=== PATIENT | male | born 1950 | race Caucasian/White ===

== ENCOUNTER → 2023-07-04 15:46 | Outpatient (REF) | payer MEDICARE, OTHER, SELFPAY | LOC: HWRAD 15:46 | PROVIDERS: ATTENDING PHYSICIAN Internal Medicine Critical Care Medicine; FAMILY PHYSICIAN Family Medicine | DX: R93.89 Abnormal findings on diagnostic imaging of other specified body structures (principal); J84.9 Interstitial pulmonary disease, unspecified | CPT/HCPCS: 71250 ==

== ENCOUNTER → 2024-01-21 12:19 | Outpatient (REF) | payer MEDICARE, OTHER, SELFPAY | LOC: HWRAD 12:19 | PROVIDERS: ATTENDING PHYSICIAN Internal Medicine Critical Care Medicine; FAMILY PHYSICIAN Family Medicine | DX: R93.89 Abnormal findings on diagnostic imaging of other specified body structures (principal) | CPT/HCPCS: 71250 ==

== ENCOUNTER 2024-02-11 06:55 | Day surgery (SDC) | payer MEDICARE, OTHER, SELFPAY ==
[2024-02-09 11:03] VITALS: BMI 25.3
[2024-02-11] VITALS (9 sets, daily range): BP systolic 127–148; BP diastolic 73–98; BMI 25.5
[2024-02-11] MEDS: DUONEB 3 ML INH (09:02)
== END 2024-02-11 12:50 | disposition home or self-care (01) ==
LOC: SDS 06:55
PROVIDERS: ATTENDING PHYSICIAN Internal Medicine Critical Care Medicine
DX: R91.1 Solitary pulmonary nodule (principal); R93.89 Abnormal findings on diagnostic imaging of other specified body structures; J84.9 Interstitial pulmonary disease, unspecified; J44.9 Chronic obstructive pulmonary disease, unspecified; Z87.891 Personal history of nicotine dependence; Z80.1 Family history of malignant neoplasm of trachea, bronchus and lung
CPT/HCPCS: 31629; 31628; 31652; 31627; 31623; 31654; 31624; 88172; 88173; 88305; 71045; 76000; 87015; 87070; 87102; 87116; 87205; 88112; 88313; 88333; 88334; 88342; 94640; C1887

== ENCOUNTER 2024-04-22 06:14 | Inpatient (IN) | payer MEDICARE, OTHER, SELFPAY ==
[2024-04-16 12:24] VITALS: BMI 25.9
[2024-04-16 13:07] LABS: % Basophils 0.9 % (0-2); % Eosinophils 8.6 % (0-6); % Immature Granulocytes 0.4 % (0-0.5); % Lymphocytes 22.8 % (20.5-51.1); % Monocytes 9.7 % (1.7-9.3); % Neutrophils 57.6 % (42.2-75.2); Absolute Basophils 0.1 10^3/uL (0-0.2); Absolute Eosinophils 0.5 10^3/uL (0-0.7); Absolute Lymphocytes 1.2 10^3/uL (1.2-3.4); Absolute Monocytes 0.5 10^3/uL (0.1-0.6); Absolute Neutrophils 3.1 10^3/uL (1.4-6.5); Hematocrit 36.8 % (39.0-52.0); Hemoglobin 12.5 g/dL (13.0-18.0); Mean Corpuscular Hgb 28.7 pg (27.0-31.0); Mean Corpuscular Volume 84.4 fL (80.0-94.0); Mean Platelet Volume 10.1 fL (7.4-10.4); Nucleated Red Blood Cells % 0 % (-); Platelet Count 212 10^3/uL (130-400); Red Blood Cell Count 4.36 10^6/uL (4.70-6.10); Red Cell Dist. Width 12.3 % (11.5-14.5); White Blood Cell Count 5.3 10^3/uL (4.8-10.8)
[2024-04-16 13:19] LABS: ALT (SGPT) 18 U/L (0-50); AST (SGOT) 27 U/L (17-59); Albumin 4.7 g/dl (3.5-5.0); Alkaline Phosphatase 62 U/L (38-126); Blood Urea Nitrogen 20 mg/dl (9-20); Calcium 9.3 mg/dl (8.4-10.2); Carbon Dioxide 26 mmol/L (22-30); Chloride 101 mmol/L (98-107); Estimated Creatinine Clearance 38 ml/min; Glucose 90 mg/dl (70-99); Potassium 4.3 mmol/L (3.5-5.1); Sodium 137 mmol/L (135-145); Total Bilirubin 0.9 mg/dl (0.2-1.3); Total Protein 7.1 g/dl (6.3-8.2); eGFR 45.21
[2024-04-16 13:20] LABS: INR 1.03; PT 13.8 Sec (11.4-14.6)
[2024-04-16 13:21] LABS: APTT 28.7 Sec (23.4-35.0)
[2024-04-16 13:31] LABS: Urine Albumin Negative (Neg - Trace); Urine Bilirubin Negative (Negative); Urine Character Clear (Clear); Urine Color Yellow; Urine Glucose Negative (Negative); Urine Ketone Negative (Negative); Urine Leukocyte Negative (Negative); Urine Nitrite Negative (Negative); Urine Occult Blood Negative (Negative); Urine Urobilinogen Negative (Neg - 1+)
--- NOTE | 2024-04-16 13:52 | CM ---
Met with Mr. Nielsen in [facility]. He states prior to admission he resides with his spouse in a two story home with two steps to enter. He states he has a full flight of steps to get to bedroom/full bathroom. He states he has a powder room on the first
floor. He states prior to admission he was independent with ambulation and adls. He states he has a CPAP Machine at home and no other DME in the home. He states he has a prescription plan and uses [facility]. He states his spouse will be
home to assist in his care when he goes home. The discharge plan is to return home with his spouse a home visit by the Transitional Care Nurse when medically stable.
We reviewed pre-op and post-op routines. We reviewed the shower instructions. He has the soap, and written instructions. He already has the Lung Educational Booklet. We also reviewed restrictions including driving and lifting. We discussed a
home visit by the Transitional Care Nurse. He is agreeable to home visit. The plan is to for Right Upper Lobe Lobectomy on 04/22/24.
[2024-04-16 14:36] LABS: Glycohemoglobin (HgbA1c) 5.4 % (4.0-5.6)
[2024-04-22] VITALS (22 sets, daily range): BP systolic 115–160; BP diastolic 76–102; BMI 25.9; BMI 26.4
--- NOTE | 2024-04-22 06:28 | W.CVOR.SURPR ---
CVOR Surgeon Immed Pre Op
-
I have examined this patient prior to performance of the scheduled procedure.
The patient's condition is unchanged from the time of the dictated/written History and
Physical and the patient is able to undergo the scheduled procedure.
RATS RUL Segment vs Lobectomy + LN Dissection
--- NOTE | 2024-04-22 07:00 | PTCARENOTE ---
Assumed care of the patient at 0700. Patient awaiting transport to the OR. at bedside. Oriented, pleasant, questions encouraged. Call hughes within reach, assessment of needs ongoing.
--- NOTE | 2024-04-22 08:19 | CM ---
Reviewed chart. Mr. Nielsen is in the operating room today. Prior to admission he resides with his spouse in a two story home with two steps to enter. He has a full flight of steps to get to bedroom/full bathroom. He has a powder room on the first
floor. Prior to admission he was independent with ambulation and adls. He has a CPAP Machine at home and no other DME. He has a prescription plan and uses [facility]. His spouse will be home to assist in his care if needed. Medial work-up
in progress. The discharge plan is to return home with his spouse and a home visit by the [facility] when medically stable.
[2024-04-22 10:09] LABS: Urine Albumin Negative (Neg - Trace); Urine Bilirubin Negative (Negative); Urine Character Clear (Clear); Urine Color Yellow; Urine Glucose Negative (Negative); Urine Ketone Negative (Negative); Urine Leukocyte Negative (Negative); Urine Nitrite Negative (Negative); Urine Occult Blood Negative (Negative); Urine Urobilinogen Negative (Neg - 1+)
--- NOTE | 2024-04-22 14:24 | CON.INTV ---
Consultation
Consultation Request
Date/Time Consultation Requested: 04/22/2024-2:30 PM
Date/Time Consultation Performed: 04/22/2024-3 PM
Requesting Provider: Cardiovascular surgery
Performing Provider: Dr. Zhao
Reason for Consultation: Postoperative critical care management
Medical History
-
Chief Complaint: Lung cancer
History of Present Illness:
73-year-old former smoking male with history of atrial fibrillation, hypertension, chronic kidney disease, and hyperlipidemia with known slowly increasing right upper lobe nodule underwent bronchoscopy and pathology revealing atypical cells and
abnormal PET scan and underwent robotic assisted thorascopic right upper lobectomy and lymph node dissection-tread cutter was consulted for postoperative critical care management 04/22/2024. Patient is seen postoperatively in the cardiovascular
intensive care unit. He is still somewhat lethargic, complaining of significant pain. No respiratory distress or no complaints of abdominal pain.
Past Medical History
Past Medical History: None (Hypertension. Hyperlipidemia. Former smoker. BPH. Chronic kidney disease stage III. Atrial fibrillation 2003. IBS. Sinus surgery. TURP 2012. Cholecystectomy. Eye surgery 2016. Right rotator cuff 2021.
Hemorrhoidectomy 2022.)
Social History
Tobacco: Former Smoker (Quit 1984)
Alcohol: Occasional (3-4 beers per week)
Drug: None
Personal:
Living: With Family
Occupational Exposures: No known asbestos exposure
Environmental Exposures: No known tuberculosis exposure
Family History
Family History: Other (Father-CAD, dementia and Parkinson's. Cousin-ovarian cancer. Mother-CAD. Paternal aunt stomach cancer. Brother-diabetes.)
Allergies / Home Medications
Allergies
Allergy/AdvReac Type Severity Reaction Status Date / Time
Cephalosporins Allergy patient Verified 04/15/24 11:19
unaware
penicillin V Allergy brother Verified 04/15/24 11:19
and mother
anaphylaxis
Penicillins Allergy brother Verified 04/15/24 11:19
and mother
anaphylaxis
pollen extracts Allergy nasal Verified 04/15/24 11:19
congestion
Home Medications
�Medication �Instructions �Recorded �Confirmed �Last Taken �Type
amlodipine 2.5 mg tablet 2.5 mg PO QPM 06/14/22 04/22/24 04/19/24 21:00 History
atorvastatin 10 mg tablet 10 mg PO QPM 06/14/22 04/22/24 04/21/24 21:00 History
calcium carbonate (Tums) 200 mg PO TIDPRN PRN gerd 06/14/22 04/22/24 04/21/24 17:00 History
colestipol 1 gram tablet 1 g PO QPM 06/14/22 04/22/24 04/21/24 21:00 History
colestipol 1 gram tablet 2 g PO DAILY@1200 06/14/22 04/22/24 04/21/24 12:00 History
ipratropium bromide 42 mcg (0.06 2 spray intranasal BID 02/28/23 04/22/24 04/21/24 21:00 History
%) nasal spray
cetirizine 10 mg tablet (Zyrtec) 10 mg PO DAILY 02/09/24 04/22/24 04/21/24 09:00 History
fluticasone propionate 50 2 spray intranasal QPM PRN allergy 02/09/24 04/22/24 04/21/24 21:00 History
mcg/actuation nasal Symptoms
spray,suspension (Flonase Allergy
Relief)
loperamide 2 mg tablet 2 mg PO PRN PRN Diarrhea 02/09/24 04/22/24 04/16/24 History
omeprazole 40 mg capsule,delayed 40 mg PO DAILY 02/09/24 04/22/24 04/21/24 09:00 History
release
sodium bicarbonate 0.5 tsp PO PRN PRN indigestion 02/09/24 04/22/24 04/16/24 History
psyllium 1 packet PO DAILY 02/11/24 04/22/24 04/21/24 09:00 History
tadalafil 10 mg tablet 10 mg PO HS ED 04/15/24 04/22/24 Unknown History
Review of Systems
-
Unable to Obtain full review of systems at this time due to: Other (Per HPI)
Vitals / Labs / Diagnostic Testing
Vital Signs
Temp Pulse Resp BP Pulse Ox
98.4 F 74 18 154/90 100
04/22/24 06:18 04/22/24 06:18 04/22/24 06:18 04/22/24 06:11 04/22/24 06:18
Lab Data
04/16/24 12:34
04/16/24 12:34
Diagnostic Testing:
Physical Exam
-
Exam:
Well-nourished and well-developed in no apparent distress
HEENT-atraumatic, normocephalic
Neck-supple, no JVD, no bruit
Heart-regular rate and rhythm-no murmurs, rubs or gallops
Chest with diminished breath sounds, chest tubes on the right
Back-no tenderness
Abdomen-soft, nontender, nondistended, no hepatosplenomegaly
Extremities-no cyanosis, clubbing, edema and good peripheral pulses
Integument-intact, no rashes, lesions or ecchymosis
Neurology-alert and oriented, nonfocal motor and sensory exam
Assessment
-
73-year-old former smoking male with history of atrial fibrillation, hypertension, chronic kidney disease, and hyperlipidemia with known slowly increasing right upper lobe nodule underwent bronchoscopy and pathology revealing atypical cells with
positive PET scan and underwent robotic assisted thorascopic right upper lobectomy and lymph node dissection-tread cutter was consulted for postoperative critical care management 04/22/2024.
Right upper lobe nodule-slowly increasing in size
Status post robotic bronchoscopy 02/2024-atypical cells with positive PET scan
Status post robotic assisted thorascopic right upper lobectomy and lymph node dissection Dr. Charles 04/22/2024
Mild qihfrx-mljwbnunwo-drzbeckbse 12.5
Mild hyperglycemia
Conditions present prior to admission:
Hypertension.
Hyperlipidemia.
Former smoker.
Cough variant asthma
Seasonal allergies
PERI
Decreased diffusing capacity
ILD
BPH.
Chronic kidney disease stage III.
Atrial fibrillation 2003.
IBS.
Sinus surgery. TURP 2012. Cholecystectomy. Eye surgery 2016. Right rotator cuff 2021. Hemorrhoidectomy 2022.
Plan
Patient seen postoperatively in the cardiovascular intensive care unit
Tolerated extubation
Wean supplemental oxygen
Incentive spirometry
Nebulizers if needed-currently not bronchospastic
Operative records reviewed
Monitor chest tube output
Follow chest x-ray
Await final pathology
Follow hemoglobin
Transfuse if needed
Monitor blood sugar
Insulin supplementation as needed
DVT prophylaxis
Nutrition
Early mobilization
Last saw Dr. Ren 03/24/2024 and has follow-up appointment 11:45 AM 05/17/2024
Critical care statement: A total of 55 minutes of critical care time was provided for this patient today. This includes management of unstable vital signs, evaluation of the patient at bedside, reviewing the patient's pertinent medical records
including radiographs, microbiology, laboratory evaluations, and discussion with primary team, consultants, pharmacy, nutrition, physical therapy, case management, charge nurse, critical care nursing, and respiratory therapy.
Diagnostic data:
Chest x-ray 02/11/2024-no pneumothorax, hazy opacifications over right mid to upper lung zone likely sequelae of recent bronchoscopy
CT chest from 01/21/2024 revealed an unchanged 3 mm nodule along the right minor fissure, possibly intrapulmonary lymph node. Unchanged 5.8 mm nodule within the posterior right upper lobe. Unchanged 4 to 5 mm subpleural nodule within the left upper
lobe. Scattered calcified granulomas bilaterally.
PET/CT 03/08/2024: 17 mm FDG avid lymph node superior aspect of the right hilum which measures 3.3 SUV max and is 4.1 currently. Slight increased FDG avidity compared to prior.13 mm right upper lobe nodule increased in size compared to prior (grew
about 3 mm), SUV 1.6 max.BAL positive for CAROLYNN: There was no granuloma biopsied. No other abnormalities to suggest active infection.
PFT 02/04/2024: FVC 3.96/108%, FEV1 2.58/98%, ratio 65%, 12% BD response in FEV1, post BD results FVC 4.05/111%, FEV1 2.88/109%, ratio 71%, TLC 6.22/99%, DLCO 17.58/76%, DLCO/VA 3.2/88%.
Bronchoscopy 02/11/2024-right upper lobe brush negative for malignant cells, trans bronchial needle aspiration atypical cytology
Bronchoscopy 02/11/2024-the right upper lobe lung nodule biopsy-rare atypical cells
Sleep study 12/13/2015: EMILIA 10 there was mild oxygen desaturation nocturnally.
Stress echo 02/04/2019: Below average exercise intolerance. No evidence for ischemia. Low risk study
Data Reviewed
-
PFT: Report reviewed by me
EKG: Report reviewed by me
Radiology: Report reviewed by me
CT Scan: Report reviewed by me
Medical Tests (Nuc Med, Echo etc): Report reviewed by me
Labs: Labs reviewed by me
Old Records: Reviewed
Critical Care Time (in minutes): 55
--- NOTE | 2024-04-22 14:56 | W.PN.CT.SURG ---
Addendum entered and electronically signed by Ronny Charles MD 04/22/24 15:42:
Procedure(s) Performed:
1. Robotic assisted thoracic surgery (RATS) right upper lobectomy
2. Radical lymph node dissection
3. Intercostal nerve block performed by anesthesia
4. Pexy of RML to RLL to prevent torsion
Original Note:
CT Surgery Operative Note
-
THORACIC SURGERY OPERATIVE REPORT
Preoperative Diagnosis: Pulmonary nodule with atypical cells of the right upper lobe with concerning features
Postoperative Diagnosis: Same
Procedure(s) Performed:
1. Robotic assisted thoracic surgery (RATS) right upper lobectomy
2. Radical lymph node dissection
3. Intercostal nerve block performed by anesthesia
Date of Surgery: 04/22/2024
Comorbidities:
1. Right upper lobe nodule with increased growth and concerning features on PET/CT
2. Melanoma stage II the right eyelid
3. Atrial fibrillation
4. Irritable bowel syndrome
5. Hypertension
6. History of BPH
7. CKD stage III
8. Right bundle branch block
9. Nonobstructive coronary artery disease
10. History of tobacco abuse
Attending Surgeon: Ronny Charles MD, MS
Assistants: Donna Hutchison PA-C (present and necessary to physician assistant primary care, exchanging robotic instruments, retraction, suction, exposure, suture management, and wound closure under my direction)
Anesthesiology: Richard Liu MD and Yoshi Merrill CRNA
Scrub and Circulating RNs: Vania Bob, RN and Nasrin Conley, RN, Felisha Crawford, NEHEMIAS and Nikki Haywood RN
Anesthesia: Dual Lumen GETA
EBL: 150 cc
Products: None
Indication(s) for Procedures: This is a 73-year-old male with history of tobacco abuse. He has a known right upper lobe nodule that has increased in size as well as FDG avidity on PET CT scan concerning for malignancy. He underwent a robotic
endoluminal bronchoscopy which demonstrated atypical cells but no javier malignancy. Given the concerning features on his imaging studies as well as his atypical cells on pathology, he was sent to me for possible surgical resection with lymph node
dissection.
Findings: There were no obvious intrathoracic metachronous lesions. His hilum was densely scarred with evidence of central lobar emphysema. 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
bronchus. He had poorly developed fissures which required extensive dissection in order to separate the lobes. At the conclusion of the case he had a minor degree of air loss with a tidal volume although this improved significantly with his [place]
respiration and cessation of positive pressure ventilation.
Specimen(s):
Station 9, x 3 nodes
Station 10, x 4 nodes
Station 11, x 3 nodes
Station 4/2, x 1 nodes
Station 7, x 1 nodes
Right upper lobe lobe
Description of Procedure: The patient was taken to the operating room. Induction via general anesthesia with endotracheal intubation was performed and peripheral venous access and arterial monitoring were inserted. Their identity and procedure to be
performed were verified and they were positioned with the right side up on the operating table. The patient was then prepped and draped in a sterile fashion. A preoperative time-out was performed with all members of the team present. A Veress
needle was used to insufflate the chest after isolating the lung. An 8 mm port was placed in the midaxillary line at approximately the eighth intercostal space and confirmed to be intrathoracic without significant pulmonary injury. The chest was
surveyed for any evidence of metastatic disease. Patient tolerate insufflation without complication. 2 additional 12 mm trocars were placed on either side under camera guidance and a third 8 mm trocar was placed along the back. A 12 mm [employer] assistant
port was placed in the 11th intercostal space above the insertion of the diaphragm.
The thoracic cavity was inspected for evidence of metastatic disease. None was observed. I attempted to palpate the parenchyma of the right upper lobe in order to identify the nodule which was unsuccessful. We started with mobilization of the
inferior pulmonary ligament. We worked our way clockwise dissecting out the hilum and harvest any lymph nodes identified. Of note, his hilum was significantly scarred. He also had poorly developed fissures between the right upper middle and right
upper and lower lobes. After circumferentially freeing up his hilum, I then headed towards the fissure which required extensive separation of the lung parenchyma between the lobes. Once I was able to identify the main pulmonary artery with its
branches, I was able to sequentially divide the lung parenchyma with green loads until the hilum was free and the fissures were fully developed. At this point in order to gain access to the arterial branches, the pulmonary veins were taken
sequentially flush to the left atrium. These were done with white load staplers. At this point he had a bifurcating truncus branch heading up towards the apex and then a larger branch towards the mid body of the right upper lobe. These were taken
with white load staplers. In order to obtain enough length on the bronchus heading towards the right upper lobe, additional dissection was performed. I clamped the bronchus and performed a test inflation which demonstrated unobstructed flow into
the remaining middle and lower lobe. The specimen was displaced toward the apex while a chest tube was inserted and placed laterally towards the apex. CoSeal was used to reinforce the staple lines and hilum. The right upper lobe was then placed
into a specimen bag and extracted from the chest cavity. After confirming hemostasis, the lung was fully inflated and all ports were removed. Incisions were closed in 3 layers including the fascia, dermal, and epidermis. Additional local
anesthesia was injected into all incision sites. The skin wound was cleansed and sealed with Dermabond glue.
All instrument, sponge, and needle counts were confirmed to be correct x 2 at the end of the operation. The patient was transferred to the recovery unit extubated in critical but stable condition.
I, Dr. Ronny Charles, was present, scrubbed for, and performed all critical elements of this procedure.
Ronny Charles MD, MS
Cardiothoracic Surgeon
[facility]
This operative dictation was created using the [employer] dictation system. Please excuse any grammatical, typographical, or 'sound alike' errors
[2024-04-22] MEDS: DILAUDID 0.5 MG IV ×4 (14:57→18:46)
[2024-04-22] MEDS: DEMEROL 12.5 MG IV ×2 (15:30→15:53)
--- NOTE | 2024-04-22 16:45 | PTCARENOTE ---
Patient received from PACU at 1640. AOx3, drowsy, awoke to verbal stimulation, grimacing in pain, 9/10. SR w/ RBBB on the monitor, no edema, + pulses, heart tones audible. On RA, placed on 2LNC for desatting to 88% d/t drowsiness. L lung clear, R
lung coarse on auscultation, R pleural dorsal CT to -20 cm wall suction, +1-2 air leak and tidaling noted, no crepitus. CT dressing CDI, scant drainage on gauze. Abdomen SNT, c/o dry mouth, tolerated PO medications. Ayers catheter in place draining
clear yellow urine. All surgical sites intact, approximated. PIV x2 in R hand and LAC. L radial a-line in place, line leveled and zeroed. See nursing worklist for interventions details.
[2024-04-22] MEDS: LIPITOR 10 MG PO (17:26)
[2024-04-22] MEDS: NEURONTIN 100 MG PO ×2 (17:26→21:56)
[2024-04-22] MEDS: NORVASC 2.5 MG PO (18:02)
[2024-04-22] MEDS: ROXICODONE 5 MG PO (18:47)
[2024-04-22] MEDS: LOPRESSOR 12.5 MG PO (20:10)
[2024-04-22] MEDS: SENOKOT 8.6 MG PO (20:10)
--- NOTE | 2024-04-22 20:36 | PTCARENOTE ---
Received pt from [facility]. Walking rounds completed. Pt assessment completed in bed. Pt is drowsy, oriented X4. No neuro deficits noted. NSR with BBB noted on monitor. HR 83, B/P 141/94. L A-line zeroed and calibrated. Pulses palpable, - edema. R
lung coarse, L lungs clear. POX 96% on 2L NC. CTx1 airleak, tidaling 1-2. Ayers intact, draining clear, yellow urine. WNL. Hypoactive BS, abdomen, soft, non-tender. R chest incisions (3) EDILSON, approximated, surgical glue present. All surgical
incisions stable. R C/T dressing with minimal drainage. R hand PVA intact, flushes. Discussed plan of care with pt and family. Pt agrees to plan. Will continue to monitor Pt needs.
[2024-04-22] MEDS: ANCEF 5 IV (21:01)
[2024-04-22] MEDS: TYLENOL 1000 MG PO (21:56)
[2024-04-22] MEDS: FLEXERIL 5 MG PO (22:05)
--- NOTE | 2024-04-22 23:15 | PTCARENOTE ---
VSS. Pt in sinus rhythm on monitor HR 70, B/P 115/88. Pt c/o right chest pain 6-11/14. Discussed pain management course with pt and . Pt agrees with plan. Medication provided (SEE MAR). Will continue to monitor pt needs.
[2024-04-22] MEDS: ROXICODONE 2.5 MG PO (23:21)
[2024-04-23] VITALS (23 sets, daily range): BP systolic 100–136; BP diastolic 63–80; BMI 25.6
--- NOTE | 2024-04-23 03:11 | PTCARENOTE ---
VSS, NSR on monitor with BBB. HR 68, B/P 111/66. POX 95 2L NC. Resps 14. Positive relief of pain. Pt resting in bed. Will continue to monitor pt needs.
[2024-04-23 04:26] LABS: Hematocrit 32.7 % (39.0-52.0); Hemoglobin 11.3 g/dL (13.0-18.0); Mean Corp Hgb Conc. 34.6 g/dL (33.0-37.0); Mean Corpuscular Hgb 29.1 pg (27.0-31.0); Mean Corpuscular Volume 84.3 fL (80.0-94.0); Mean Platelet Volume 9.7 fL (7.4-10.4); Platelet Count 197 10^3/uL (130-400); Red Blood Cell Count 3.88 10^6/uL (4.70-6.10); Red Cell Dist. Width 12.6 % (11.5-14.5); White Blood Cell Count 8.1 10^3/uL (4.8-10.8)
[2024-04-23] MEDS: ANCEF 5 IV ×2 (04:40→12:54)
[2024-04-23] MEDS: ROXICODONE 2.5 MG PO ×3 (04:40→21:48)
[2024-04-23 04:41] LABS: Blood Urea Nitrogen 23 mg/dl (9-20); Calcium 8.4 mg/dl (8.4-10.2); Carbon Dioxide 24 mmol/L (22-30); Chloride 102 mmol/L (98-107); Estimated Creatinine Clearance 46 ml/min; Glucose 125 mg/dl (70-99); Magnesium 2.1 mg/dl (1.6-2.3); Potassium 4.7 mmol/L (3.5-5.1); Sodium 136 mmol/L (135-145); eGFR 58.01
--- NOTE | 2024-04-23 04:45 | PTCARENOTE ---
VSS. NSR with BBB on monitor. Pt schwartz d/c'ed. Pt A-line d/c'ed. Pt tolerated both removals. Pt resting in bed. Will continue to monitor pt needs.
[2024-04-23] MEDS: TYLENOL 1000 MG PO ×3 (05:37→21:47)
[2024-04-23] MEDS: FLEXERIL 5 MG PO ×2 (05:52→15:55)
--- NOTE | 2024-04-23 05:52 | W.PN.CT ---
Today's Communication / Plan
-
-pod #1
-no issues overnight
-R CT on -20 sxn, +1 intermittent air leak with breathing, put out 160/285 in 12/24 hrs
-follow daily CXR
-UO 750/1190 in 12/24 hrs
-current meds (Norvasc, Lopressor, Lipitor, Protonix)
-encourage IS, OOB
Assessment / Plan
-
- s/p Robotic assisted thoracic surgery (RATS) right upper lobectomy; Radical lymph node dissection; Pexy of RML to RLL to prevent torsion on 04/22/[address] Charles, pod #1
- no obvious intrathoracic metachronous lesions
- Right upper lobe nodule with increased growth and concerning features on PET/CT
- Melanoma stage II the right eyelid
- Paroxysmal Atrial fibrillation
- Irritable bowel syndrome
- Hypertension
- History of BPH
- CKD stage III
- Right bundle branch block
- Nonobstructive coronary artery disease
- History of tobacco abuse
- Acute postop blood loss anemia
- Acute postop atelectasis
Discussed patient care with: Nursing and Care Team
Subjective
-
Date of Service: April 23, 2024
Objective Data
-
PT 13.8 Sec (11.4-14.6) 04/16/24 12:34
INR 1.03 04/16/24 12:34
APTT 28.7 Sec (23.4-35.0) 04/16/24 12:34
Vital Signs
Vital Signs
Temp Pulse Resp BP Pulse Ox
99.6 F 69 20 123/75 95
04/23/24 01:58 04/23/24 01:45 04/23/24 01:58 04/23/24 01:00 04/23/24 01:58
CT Intake/Output/Weight
04/22/24 04/22/24 04/23/24
06:59 18:59 06:59
Intake Total 500 / 620 120 / 620
Output Total 565 / 1205 640 / 1205
Balance -65 / -585 -520 / -585
SaO2: 95
Physical Exam
-
General: Awake and AOx3
Cardiovascular: Regular rate & rhythm, No Murmurs and No Rub
Respiratory: Decreased Breath Sounds
Incision: Clean, Dry and Intact
Extremities: No Edema
Abdomen: soft, nontender,nondistended
Data Reviewed
-
Lab Results: Results Reviewed
Medications: Active Meds Reviewed
Chest X-Ray: Report Reviewed and Image Reviewed
ECG: Report Reviewed and Image Reviewed
--- NOTE | 2024-04-23 07:41 | W.PN.INTV ---
Today's Communication / Plan
Recommendations
Tolerated extubation
Wean FiO2
Chest tube on wall suction
Follow chest x-ray
Await pathology
If transferred to telemetry pulmonary will sign off-will follow-up as an outpatient-please call with questions
Assessment
-
73-year-old former smoking male with history of atrial fibrillation, hypertension, chronic kidney disease, and hyperlipidemia with known slowly increasing right upper lobe nodule underwent bronchoscopy and pathology revealing atypical cells with
positive PET scan and underwent robotic assisted thorascopic right upper lobectomy and lymph node dissection-rag collector was consulted for postoperative critical care management 04/22/2024.
Right upper lobe nodule-slowly increasing in size
Status post robotic bronchoscopy 02/2024-atypical cells with positive PET scan
Status post robotic assisted thorascopic right upper lobectomy and lymph node dissection Dr. Charles 04/22/2024
Mild oqmikl-nvlbnpnjgx-lhnvqmhrsp 12.5
Mild hyperglycemia
Conditions present prior to admission:
Hypertension.
Hyperlipidemia.
Former smoker.
Cough variant asthma
Seasonal allergies
PERI
Decreased diffusing capacity
ILD
BPH.
Chronic kidney disease stage III.
Atrial fibrillation 2003.
IBS.
Sinus surgery. TURP 2012. Cholecystectomy. Eye surgery 2016. Right rotator cuff 2021. Hemorrhoidectomy 2022.
Plan
Respiratory status relatively stable-tolerated extubation
Wean supplemental oxygen
Incentive spirometry encouraged
Nebulizers if needed-currently not bronchospastic
Operative records reviewed
Continue to monitor chest tube output as well as leak-currently on wall suction
Chest x-ray 04/23/2024-postsurgical changes, right chest tube remains in place, no pneumothorax
Await final pathology
Follow hemoglobin-currently 11.3
Transfuse if needed
Monitor blood sugar
Insulin supplementation as needed
DVT prophylaxis
Nutrition
Early mobilization
Reviewed with at the bedside
Last saw Dr. Ren 03/24/2024 and has follow-up appointment 11:45 AM 05/17/2024
Patient stable and likely transferred to telemetry-pulmonary will follow-up as an outpatient-please call with questions
Reviewed the patient's pertinent medical records including radiographs, microbiology, laboratory evaluations, and discussion with primary team, consultants, pharmacy, nutrition, physical therapy, case management, charge nurse, critical care
nursing, and respiratory therapy.
Diagnostic data:
Chest x-ray 02/11/2024-no pneumothorax, hazy opacifications over right mid to upper lung zone likely sequelae of recent bronchoscopy
CT chest from 01/21/2024 revealed an unchanged 3 mm nodule along the right minor fissure, possibly intrapulmonary lymph node. Unchanged 5.8 mm nodule within the posterior right upper lobe. Unchanged 4 to 5 mm subpleural nodule within the left upper
lobe. Scattered calcified granulomas bilaterally.
PET/CT 03/08/2024: 17 mm FDG avid lymph node superior aspect of the right hilum which measures 3.3 SUV max and is 4.1 currently. Slight increased FDG avidity compared to prior.13 mm right upper lobe nodule increased in size compared to prior (grew
about 3 mm), SUV 1.6 max.BAL positive for CAROLYNN: There was no granuloma biopsied. No other abnormalities to suggest active infection.
PFT 02/04/2024: FVC 3.96/108%, FEV1 2.58/98%, ratio 65%, 12% BD response in FEV1, post BD results FVC 4.05/111%, FEV1 2.88/109%, ratio 71%, TLC 6.22/99%, DLCO 17.58/76%, DLCO/VA 3.2/88%.
Bronchoscopy 02/11/2024-right upper lobe brush negative for malignant cells, trans bronchial needle aspiration atypical cytology
Bronchoscopy 02/11/2024-the right upper lobe lung nodule biopsy-rare atypical cells
Sleep study 12/13/2015: EMILIA 10 there was mild oxygen desaturation nocturnally.
Stress echo 02/04/2019: Below average exercise intolerance. No evidence for ischemia. Low risk study
Subjective Dataa
Subjective Data
Date of Service:
Date of Service: April 23, 2024
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
Subjective:
Tolerated extubation, pain marginally controlled, chest tube with persistent leak, no complaints of shortness of breath at rest or abdominal pain
Review of Systems
General: Other (Per HPI)
Objective Data
Data Reviewed
Vital Signs / I&O / Oxygen:
Vital Signs
Temp Pulse Resp BP Pulse Ox
98.7 F 68 16 108/76 98
04/23/24 06:00 04/23/24 07:15 04/23/24 06:00 04/23/24 06:00 04/23/24 07:15
Intake and Output
04/22/24 04/23/24 04/24/24
06:59 06:59 06:59
Intake Total 860 / 860
Output Total 1525 / 1525
Balance -665 / -665
SaO2 98
Nasal Cannula flow liters per 2
minute
Physical Exam
General: Respiratory Distress (n) and Comfortable
HEENT: Normocephalic, Anicteric and Moist Mucous Membranes
Cardiovascular: Regular Rhythm
Respiratory: Wheeze, Crackles (n), Rhonchi (n), Non-Labored Respirations, Accessory Resp Muscle Use, Stridor (n) and Chest Tube
GI: Soft, Non Distended and Non Tender
Neurology: Awake, Alert and No Motor Deficits
Skin: Warm, Good Color, Cyanosis (n) and Jaundice (n)
Labs/Micro/Reports
Lab Data
04/23/24 04:05
04/23/24 04:05
[2024-04-23] MEDS: DILAUDID 0.5 MG IV ×2 (08:23→12:54)
[2024-04-23] MEDS: LIDOCAINE 4% PATCH 1 PATCH TOPICAL (08:27)
[2024-04-23] MEDS: NEURONTIN 100 MG PO ×3 (08:30→21:48)
[2024-04-23] MEDS: LOPRESSOR 12.5 MG PO ×2 (08:30→19:44)
[2024-04-23] MEDS: PROTONIX 40 MG PO (08:30)
[2024-04-23] MEDS: METAMUCIL, KONSYL 1 PACKET PO (08:30)
[2024-04-23] MEDS: SENOKOT 8.6 MG PO ×2 (08:30→19:43)
[2024-04-23] MEDS: ZYRTEC 10 MG PO (08:30)
--- NOTE | 2024-04-23 08:30 | PTCARENOTE ---
Patient received from warehouse worker 2nd shift RN; AAOx3, responds to RN spontaneously and follows commands; VSS; SR with RBBB on monitor; +2 DP and radial pulses; Right lung coarse and diminished throughout; SpO2 94-98% on RA; CT x1 draining serosanguineous
drainage - tidaling and +1 air leak noted but no crepitus at this time; Due to void; Surgical incisions intact; PIVx2 #18 right hand and #20 LAC; Attempted water seal for chest tube at 0803 but patient unable to tolerate due to significant increase
in pain and placed back to wall suction at -20 cm at 0815 - PRN IV Dilaudid 0.5 mg given accordingly and CVNP Vania C. notified and aware; See nursing documentation for further details.
[2024-04-23] MEDS: MIRALAX 17 GRAMS PO (08:38)
[2024-04-23] MEDS: LASIX 20 MG IV (10:30)
--- NOTE | 2024-04-23 11:18 | CM ---
Reviewed chart. Met with Mr. Nielsen and his daughter to review discharge plans. He states he is feeling okay. Prior to admission he resides with his spouse in a two story home with two steps to enter. He has a full flight of steps to get to
bedroom/full bathroom. He has a powder room on the first floor. Prior to admission he was independent with ambulation and adls. He has a CPAP Machine at home and no other DME in the home. He has a prescription plan and uses [facility].
His spouse will be home to assist in his care if needed. Medical work-up in progress. The discharge plan is to return home with his spouse and a home visit by the Transitional Care Nurse when medically stable.
--- NOTE | 2024-04-23 13:00 | PTCARENOTE ---
IV Lasix 20 mg ordered and given; Patient urinated clear, yellow urine in bathroom; After returning from bathroom, patient in severe pain - PRN oxycodone 2,5 mg ineffective and PRN IV Dilaudid 0.5 mg given with good effect; Patient resting
comfortably in chair
[2024-04-23] MEDS: NORVASC 2.5 MG PO (17:10)
[2024-04-23] MEDS: LIPITOR 10 MG PO (17:10)
[2024-04-23] MEDS: ROXICODONE 5 MG PO (17:13)
--- NOTE | 2024-04-23 17:15 | PTCARENOTE ---
Patient's pain increasing throughout shift - CVNP Vania Tellez notified and PRN Oxycodone 5 mg ordered for patient; PRN Oxycodone working effectively for patient's pain
[2024-04-23] MEDS: MILK OF MAGNESIA 30 ML PO (19:44)
--- NOTE | 2024-04-23 20:00 | PTCARENOTE ---
Received pt from [facility]. Walking rounds completed. Pt assessment completed in bed. Pt AAOX4. No neuro deficits noted. NSR with RBBB noted on monitor. HR 73, B/P 116/80. Pulses palpable, - edema. R lung coarse, L lungs clear. POX 95% RA. CTx1
airleak, tidaling 1. Pt voiding clear, yellow urine. WNL. Hypoactive BS, abdomen, soft, non-tender. R chest incisions (3) EDILSON, approximated, surgical glue present. All surgical incisions stable. R C/T dressing C/D/I. R hand PVA intact, flushes.
Discussed plan of care with pt and family. Pt agrees to plan. Will continue to monitor Pt needs.
[2024-04-23] MEDS: DILAUDID 0.25 MG IV (23:10)
--- NOTE | 2024-04-23 23:30 | PTCARENOTE ---
VSS. Pt in NSR with RBBB on monitor. Pulse 82, B/P 124/76. Pt C/O pain in right upper chest and back area. Medication provided (See MAR). Positive relief of pain. Pt resting in bed. Will continue to monitor pt needs.
[2024-04-24] VITALS (18 sets, daily range): BP systolic 93–135; BP diastolic 60–88; BMI 25.6
--- NOTE | 2024-04-24 00:19 | PTCARENOTE ---
Pt in rapid AFIB on monitor @ 2315. HR 150's -170's. CTPA Ed aware. Chest xray ordered and obtained. 2.5 Lopressor given IV (SEE MAR). Pt will 13 second pause on telemonitor and a second 7 second pause on telemonitor. PA at bedside. Pt C/T placed
back on continuos wall suction. Will continue to monitor pt needs.
--- NOTE | 2024-04-24 05:06 | W.PN.CT ---
Today's Communication / Plan
-
Plan:
-No issues overnight
-Chest tube is on -20 cmh2o wall suction with continuous air leak noted, drained 170/335
-F/U AM cxr
-Will discuss suction another day
-current meds (Norvasc, Lopressor, Lipitor, Protonix)
-encourage IS, OOB/ Ambulate
Assessment / Plan
-
- s/p Robotic assisted thoracic surgery (RATS) right upper lobectomy; Radical lymph node dissection; Pexy of RML to RLL to prevent torsion on 04/22/[address] Charles, pod #2
- no obvious intrathoracic metachronous lesions
- Right upper lobe nodule with increased growth and concerning features on PET/CT
- Melanoma stage II the right eyelid
- Paroxysmal Atrial fibrillation
- Irritable bowel syndrome
- Hypertension
- History of BPH
- CKD stage III
- Right bundle branch block
- Nonobstructive coronary artery disease
- History of tobacco abuse
- Acute postop blood loss anemia
- Acute postop atelectasis
Discussed patient care with: Nursing, Respiratory Therapy, Pharmacy and Care Team
Subjective
-
Date of Service: April 24, 2024
Objective Data
-
Lab Results
04/23/24 04:05
04/23/24 04:05
PT 13.8 Sec (11.4-14.6) 04/16/24 12:34
INR 1.03 04/16/24 12:34
APTT 28.7 Sec (23.4-35.0) 04/16/24 12:34
Vital Signs
Vital Signs
Temp Pulse Resp BP Pulse Ox
99.1 F 73 20 103/62 94
04/24/24 00:09 04/24/24 04:00 04/24/24 00:09 04/24/24 04:00 04/24/24 03:45
CT Intake/Output/Weight
04/23/24 04/23/24 04/24/24
06:59 18:59 06:59
Intake Total 360 / 860 1080 / 1560 480 / 1560
Output Total 960 / 1525 940 / 1080 140 / 1080
Balance -600 / -665 140 / 480 340 / 480
SaO2: 94 (RA)
Physical Exam
-
General: Awake, Oriented and AOx3
Cardiovascular: Regular rate & rhythm
Respiratory: Decreased Breath Sounds (on right)
Incision: Clean, Dry, Intact and Dressing Intact
Extremities: No Edema
Data Reviewed
-
Lab Results: Results Reviewed
Medications: Active Meds Reviewed
Chest X-Ray: Report Reviewed and Image Reviewed
ECG: Report Reviewed and Image Reviewed
--- NOTE | 2024-04-24 05:34 | PTCARENOTE ---
VSS. Pt in NSR with RBBB on monitor. HR 74, B/P 103/62. Morning care provided. Wt obtained. Pt OOB to chair. Will continue to monitor pt needs.
[2024-04-24] MEDS: TYLENOL 1000 MG PO ×3 (06:07→22:34)
--- NOTE | 2024-04-24 08:00 | PTCARENOTE ---
Received patient for 7a-7p shift. Pt AAOx3, without complaints. VSS, room air, NSR with R bbb on threat monitoring analyst. R chest tube to -10cm wall suction, serosanguineous drainage, +tidaling, + air leak, MD aware. Dressing changed. Pt ambulated to
bathroom with 1 person assist. Medications administered as ordered. Patient denies pain at this time. Will continue to monitor.
[2024-04-24] MEDS: PROTONIX 40 MG PO (08:55)
[2024-04-24] MEDS: NEURONTIN 100 MG PO ×3 (08:55→22:34)
[2024-04-24] MEDS: SENOKOT 8.6 MG PO ×2 (08:56→21:22)
[2024-04-24] MEDS: ZYRTEC 10 MG PO (08:56)
[2024-04-24] MEDS: METAMUCIL, KONSYL 1 PACKET PO (08:56)
[2024-04-24] MEDS: LOPRESSOR 12.5 MG PO ×2 (08:57→17:05)
[2024-04-24] MEDS: MIRALAX PO (09:43)
[2024-04-24] MEDS: LIDOCAINE 4% PATCH TOPICAL (09:43)
[2024-04-24] MEDS: FLEXERIL 5 MG PO ×2 (10:34→23:22)
[2024-04-24] MEDS: ROXICODONE 2.5 MG PO ×3 (10:34→22:34)
[2024-04-24] MEDS: MIRALAX 17 GRAMS PO (13:46)
--- NOTE | 2024-04-24 13:55 | PTCARENOTE ---
Patient reassessed, assessment unchanged from previous. VSS, NSR with R bbb on loan manager. Pt oob in chair without complaints. Medications administered as ordered. R chest tube maintained to -10cm suction with serosanguineous drainage. Pt
medicated for pain as ordered. Will continue to monitor.
--- NOTE | 2024-04-24 16:24 | PTCARENOTE ---
Patient reassessed, assessment unchanged from previous. VSS, NSR w R bbb on occupational health and safety adviser. Ct to water seal by CTPA, pt tolerating, serosanguineous drainage. Pt medicated for pain. Pt ambulated approx 200 feet in [place] with minimal PRINCE. Pt returned
to chair without issues. Will continue to monitor.
[2024-04-24] MEDS: NORVASC 2.5 MG PO (17:05)
[2024-04-24] MEDS: LIPITOR 10 MG PO (17:05)
--- NOTE | 2024-04-24 20:21 | PTCARENOTE ---
Received pt from [email or web address]. Walking rounds completed. Pt assessment completed in chair. Pt AAOX4. No neuro deficits noted. NSR with RBBB noted on monitor. HR 70's, B/P 102/72. Pulses palpable, trace edema. R lung coarse, L lungs clear. POX 97% RA.
CTx1 to waterseal. Airleak, tidaling @ 1. Pt voiding clear, yellow urine. WNL. Hypoactive BS, abdomen, soft, non-tender. R chest incisions (3) BOWLING ALLEY FLOORS INSTALLER, approximated, surgical glue present. All surgical incisions stable. R C/T dressing C/D/I. R hand PVA
intact, L AC 20g intact. all flush, no redness or edema noted. Discussed plan of care with pt and family. Pt agrees to plan. Will continue to monitor Pt needs.
[2024-04-24] MEDS: LOPRESSOR 25 MG PO (20:57)
[2024-04-24] MEDS: DILAUDID 0.25 MG IV (23:03)
[2024-04-24] MEDS: LOPRESSOR 2.5 MG IV (23:40)
[2024-04-25] VITALS (36 sets, daily range): BP systolic 83–143; BP diastolic 58–89; BMI 25.6
--- NOTE | 2024-04-25 00:55 | W.PN.UPDATE ---
Update Note
Progress Note Update
CT Surgery Update Note:
After pt out of chair to bathroom and back in bed, c/o of 8/10 chest discomfort/incisional pain. Pt then noted to be in a-fib/atrial tachycardia in 150's. Stat cxr was obtained to assess lung which previous x-ray showed slight improvement of ptx on
water-seal, no SQ emphysema noted. Repeat cxr was unchanged but a-fib persisted. Lopressor 2.5 mg IV was administered, following administration of Lopressor pt had an asystolic conversion pause with brief LOC, shortly thereafter went back into a-fib
but slower rate of 110-130's. This prompted me to place chest tube back on suction @ -20 cmh20 wall suction. After discussing the above with Dr. Charles, he recommended placing chest tube back on water-seal, placing percutaneous pads on pt and okayed
administration of Amiodarone. Will start amiodarone gtt without bolus. Pt is currently chest pain free, 2L of supplemental O2 applied with O2sats 98-100%, and sleeping with daughter in the room. Will cont. to closely monitor.
[2024-04-25] MEDS: CORDARONE 518 MG IV (01:00)
--- NOTE | 2024-04-25 01:14 | PTCARENOTE ---
Pt in Rapid AFIB on monitor. HR 120's-170's . B/P 90/60 CTPA made aware of pressure. Amio gtt started. Will continue to monitor pt needs.
--- NOTE | 2024-04-25 02:00 | PTCARENOTE ---
Pt rapid afib on monitor. Pause at 0146 for 9.59 seconds, additional pause at 0151 for 11 seconds. CTPA ED made aware. Code cart in room, Pads placed on pt. Will continue to monitor pt needs.
[2024-04-25 02:15] LABS: Hematocrit 31.7 % (39.0-52.0); Hemoglobin 11.1 g/dL (13.0-18.0); Mean Corpuscular Hgb 29.4 pg (27.0-31.0); Mean Corpuscular Volume 83.9 fL (80.0-94.0); Platelet Count 193 10^3/uL (130-400); Red Blood Cell Count 3.78 10^6/uL (4.70-6.10); Red Cell Dist. Width 12.3 % (11.5-14.5)
[2024-04-25 02:45] LABS: Blood Urea Nitrogen 23 mg/dl (9-20); Calcium 8.4 mg/dl (8.4-10.2); Carbon Dioxide 22 mmol/L (22-30); Chloride 99 mmol/L (98-107); Estimated Creatinine Clearance 46 ml/min; Glucose 123 mg/dl (70-99); Magnesium 2.4 mg/dl (1.6-2.3); Potassium 4.9 mmol/L (3.5-5.1); Sodium 131 mmol/L (135-145); eGFR 58.01
--- NOTE | 2024-04-25 03:37 | PTCARENOTE ---
AFIb. Pt with multiple pauses throughout night. CTPA Ed aware. See chart for HR . Will continue to monitor pt needs.
--- NOTE | 2024-04-25 03:42 | PTCARENOTE ---
VSS. Pt converted to NSR on monitor. Will continue to monitor pt needs
[2024-04-25] MEDS: CALCIUM GLUCONATE 100 IV (04:45)
--- NOTE | 2024-04-25 08:01 | W.PN.CT ---
Today's Communication / Plan
-
Plan:
-Pt went into A-fib/atrial tachycardia (150's) after ambulating to bathroom and back into bed, had ~5 episodes of asystolic pauses while trying to convert to NSR after
receiving 2.5 mg of IV Lopressor and subsequently after initiation of Amiodarone gtt. Pt had LOC with pauses, with longest ~12 sec. before converting to NSR
-Amiodarone gtt was d/c'd after 2nd episode of asystolic pause with LOC
-Made NPO for possible PPM placement moving forward
-Cardiology/EP consult
-Chest tube is currently on water-seal with air leak noted only with caugh, drained 100/210
-F/U AM cxr
-Cont current meds (Norvasc, Lopressor, Lipitor, Protonix)
-Encourage IS, OOB/ Ambulate
Assessment / Plan
-
- s/p Robotic assisted thoracic surgery (RATS) right upper lobectomy; Radical lymph node dissection; Pexy of RML to RLL to prevent torsion on 04/22/[address] Charles, pod #3
- no obvious intrathoracic metachronous lesions
- Right upper lobe nodule with increased growth and concerning features on PET/CT
- Melanoma stage II the right eyelid
- Paroxysmal Atrial fibrillation
- Irritable bowel syndrome
- Hypertension
- History of BPH
- CKD stage III
- Right bundle branch block
- Nonobstructive coronary artery disease
- History of tobacco abuse
- Acute postop blood loss anemia
- Acute postop atelectasis
Discussed patient care with: Cardiology, Nursing, Respiratory Therapy, Pharmacy and Care Team
Subjective
-
Date of Service: April 25, 2024
Pt c/o mild incisional pain, otherwise feels well
Objective Data
-
Lab Results
04/25/24 02:01
04/25/24 02:01
PT 13.8 Sec (11.4-14.6) 04/16/24 12:34
INR 1.03 04/16/24 12:34
APTT 28.7 Sec (23.4-35.0) 04/16/24 12:34
Vital Signs
Vital Signs
Temp Pulse Resp BP Pulse Ox
98.9 F 68 20 125/66 98
04/24/24 19:26 04/25/24 06:15 04/24/24 19:26 04/25/24 06:00 04/25/24 06:15
CT Intake/Output/Weight
04/24/24 04/25/24 04/25/24
18:59 06:59 18:59
Output Total 110 / 210 100 / 210
Balance -110 / -210 -100 / -210
SaO2: 98 (2L)
Physical Exam
-
General: Awake, Oriented and AOx3
Cardiovascular: Regular rate & rhythm, No Murmurs and No Gallop
Respiratory: Decreased Breath Sounds
Incision: Clean, Dry, Intact and Dressing Intact
Extremities: No Edema
Data Reviewed
-
Lab Results: Results Reviewed
Medications: Active Meds Reviewed
Chest X-Ray: Report Reviewed and Image Reviewed
ECG: Report Reviewed and Image Reviewed
[2024-04-25] MEDS: TYLENOL 1000 MG PO ×3 (08:27→22:35)
[2024-04-25] MEDS: MIRALAX 17 GRAMS PO (09:44)
[2024-04-25] MEDS: METAMUCIL, KONSYL 1 PACKET PO (09:44)
[2024-04-25] MEDS: LIDOCAINE 4% PATCH 1 PATCH TOPICAL (09:45)
[2024-04-25] MEDS: ROXICODONE 2.5 MG PO (09:45)
[2024-04-25] MEDS: LOPRESSOR 12.5 MG PO (09:45)
[2024-04-25] MEDS: SENOKOT 8.6 MG PO ×2 (09:46→19:43)
[2024-04-25] MEDS: ZYRTEC 10 MG PO (09:46)
[2024-04-25] MEDS: NEURONTIN 100 MG PO ×3 (09:46→22:35)
[2024-04-25] MEDS: PROTONIX 40 MG PO (09:46)
--- NOTE | 2024-04-25 10:34 | PTCARENOTE ---
Patient received from outdoor adventure guides resting in bed, AAO x 3, daughter at bedside. NSR via cm, SaO2 @ 99% on 2lnc. R post chest tube to H2O seal, transitioned to Heimlich valve by MARCO A Franko - patient tolerated well. All procedural sites stable. Dr. Charles
to bedside, patient updated to plan of care for the day, in agreement. See work list for full assessment and interventions performed.
[2024-04-25] MEDS: ROXICODONE 5 MG PO (14:03)
--- NOTE | 2024-04-25 14:42 | CON.CAR ---
Consultation
Consultation Request
Reason for Consultation: bradycardia
Medical History
-
History of Present Illness:
73-year-old former smoking male with history of atrial fibrillation (distant history of an isolated episode 20 years ago) hypertension, chronic kidney disease, and hyperlipidemia right upper lobe nodule.
Patient now post robotic assisted thorascopic right upper lobectomy and lymph node dissection-. 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 He had received some low-dose oral beta-redd prior to last night and then received a
single dose of IV Lopressor 2.5 mg. Reportedly amiodarone drip was going to be initiated but then discontinued due to conversion pause. Patient had A-fib between 3 and 4 AM and had conversion pauses 9 to 11 seconds in duration patient denies
having any symptoms including no palpitations or heart racing. Currently feels fine remains in sinus rhythm with heart rate in the 70s with no recurrent A-fib. Patient denies having any palpitations or heart racing at home he states he had an
episode of A-fib 20 years ago that was in the setting of a GI illness he followed up with Dr. Long for a number of years but has not seen him in the last 10 years. He has had no episodes of syncope or near syncope.
Review of systems otherwise unremarkable
Past Medical History
Past Medical History: Other (History as above)
Social History
Personal:
Family History
Family History: Reviewed & Not Pertinent
Allergies / Home Medications
Allergy/AdvReac Type Severity Reaction Status Date / Time
Cephalosporins Allergy patient Verified 04/15/24 11:19
unaware
penicillin V Allergy brother Verified 04/15/24 11:19
and mother
anaphylaxis
Penicillins Allergy brother Verified 04/15/24 11:19
and mother
anaphylaxis
pollen extracts Allergy nasal Verified 04/15/24 11:19
congestion
�Medication �Instructions �Recorded �Confirmed �Type
amlodipine 2.5 mg tablet 2.5 mg PO QPM Blood Pressure 06/14/22 04/22/24 History
atorvastatin 10 mg tablet 10 mg PO QPM High Cholesterol 06/14/22 04/22/24 History
calcium carbonate (Tums) 200 mg PO TIDPRN PRN gerd 06/14/22 04/22/24 History
colestipol 1 gram tablet 1 g PO QPM 06/14/22 04/22/24 History
colestipol 1 gram tablet 2 g PO DAILY@1200 06/14/22 04/22/24 History
ipratropium bromide 42 mcg (0.06 2 spray intranasal BID 02/28/23 04/22/24 History
%) nasal spray Lung/Breathing Issues
cetirizine 10 mg tablet (Zyrtec) 10 mg PO DAILY Allergies 02/09/24 04/22/24 History
fluticasone propionate 50 2 spray intranasal QPM PRN allergy 02/09/24 04/22/24 History
mcg/actuation nasal Symptoms
spray,suspension (Flonase Allergy
Relief)
loperamide 2 mg tablet 2 mg PO PRN PRN Diarrhea 02/09/24 04/22/24 History
omeprazole 40 mg capsule,delayed 40 mg PO DAILY Gastrointestinal 02/09/24 04/22/24 History
release Issue
sodium bicarbonate 0.5 tsp PO PRN PRN indigestion 02/09/24 04/22/24 History
psyllium 1 packet PO DAILY 02/11/24 04/22/24 History
tadalafil 10 mg tablet 10 mg PO HS ED 04/15/24 04/22/24 History
Review of Systems
-
All other systems: Negative unless noted
Physical Exam
Vital Signs
Temp Pulse Resp BP Pulse Ox
98.6 F 72 16 129/89 96
04/25/24 11:59 04/25/24 11:59 04/25/24 11:59 04/25/24 11:53 04/25/24 11:59
Lab Results
04/25/24 02:01
01/19/25 02:01
Physical Exam
General: Well Developed, Well Nourished and No Apparent Distress
HEENT: Normocephalic
Respiratory: Other (Postop lung surgery chest tube in place patient still with right-sided discomfort)
Cardiac: Regular Rhythm
GI: Soft and Non Tender
Musculoskeletal: No Clubbing, No Cyanosis and No Edema
Neuro: Awake and Alert
Hematologic/Lymphatic: No Lymphadenopathy
Impression / Plan
-
.
Bradycardia. Patient developed A-fib with long conversion pauses currently asymptomatic in sinus rhythm and heart rates in the 70s. No prior history of syncope or near syncope. Reviewed issues with the patient due to the length of pauses would
recommend pacemaker. Issues also reviewed with Dr. Charles and EP.
-Plan for pacemaker tomorrow
-Hold beta-redd
-If recurrent A-fib with accelerated rates with lower patient to continue to have accelerated A-fib and would avoid giving additional rate slowing drugs.
.
PAF.-Distant history of A-fib 20 years ago now with recurrence in the postop setting after thoracic surgery
-plan for pacer as above
-And then would continue with beta-redd after pacer implant.
-Assessment regarding anticoagulation after additional recover from surgery.
-Echo
.
Postop thoracic surgery
-Management as directed by Dr. Charles
Data Reviewed
-
EKG: Tracing Personally Visualized and interpreted and Report Reviewed by me
Medical Tests (Nuc Med, Echo etc): Report Reviewed by me
Labs: Discussed with Physician
--- NOTE | 2024-04-25 15:43 | PTCARENOTE ---
VS obtained, assessment stable. Chest tube redressed and reinforced by this RN and MARCO A Franko. Patient assisted back to bed.
[2024-04-25] MEDS: NORVASC 2.5 MG PO (18:06)
[2024-04-25] MEDS: LIPITOR 10 MG PO (18:06)
[2024-04-25] MEDS: HEPARIN 5000 UNITS SC (19:43)
[2024-04-25] MEDS: TORADOL 15 MG IV (20:54)
[2024-04-26] VITALS (14 sets, daily range): BP systolic 108–154; BP diastolic 69–96; BMI 25.5
--- NOTE | 2024-04-26 00:23 | PTCARENOTE ---
Pt. remains in NSR on the monitor, rate 80's-90's, VSS. Right lateral chest tube dressing CDI, chest tube to Heimlich valve, draining small amount SS fluid. Pt. denies any SOB, RA pulse ox mid 90's, right lung coarse on auscultation, left
diminished. Pt. maintained on bedrest this shift per MD, plan for PPM in AM. Plan of care discussed with patient, understanding verbalized. Pt. sleeping.
[2024-04-26] MEDS: TYLENOL 1000 MG PO ×3 (05:21→22:02)
--- NOTE | 2024-04-26 05:38 | PTCARENOTE ---
Pt.'s chest tube drained 40 ml SS fluid this shift; CHG bath completed and linens changed in preparation for upcoming pacer insertion.
--- NOTE | 2024-04-26 06:00 | W.PN.CT ---
Today's Communication / Plan
-
Plan:
-No major issues overnight. Pt kept on bedrest
-No further afib/atrial tachycardia or conversion pauses
-Amiodarone and BB on hold
-For PPM placement today
-Made NPO
-Has small stable right apical ptx, F/U official cxr report
-Heimlich valve placed yesterday 04/25/23 without incident
-Pt went into A-fib/atrial tachycardia (150's) after ambulating to bathroom and back into bed, had ~5 episodes of asystolic pauses while trying to convert to NSR after
Assessment / Plan
-
- s/p Robotic assisted thoracic surgery (RATS) right upper lobectomy; Radical lymph node dissection; Pexy of RML to RLL to prevent torsion on 04/22/[address] Charles, pod #4
- no obvious intrathoracic metachronous lesions
- Right upper lobe nodule with increased growth and concerning features on PET/CT
- Melanoma stage II the right eyelid
- Paroxysmal Atrial fibrillation
- Irritable bowel syndrome
- Hypertension
- History of BPH
- CKD stage III
- Right bundle branch block
- Nonobstructive coronary artery disease
- History of tobacco abuse
- Acute postop blood loss anemia
- Acute postop atelectasis
Discussed patient care with: Cardiology, Nursing, Respiratory Therapy, Pharmacy and Care Team
Subjective
-
Date of Service: April 26, 2024
Pt c/o mild incisional pain, otherwise feels well
Objective Data
-
Lab Results
04/25/24 02:01
04/25/24 02:01
PT 13.8 Sec (11.4-14.6) 04/16/24 12:34
INR 1.03 04/16/24 12:34
APTT 28.7 Sec (23.4-35.0) 04/16/24 12:34
Vital Signs
Vital Signs
Temp Pulse Resp BP Pulse Ox
98.2 F 92 16 108/69 95
04/26/24 03:03 04/26/24 05:04 04/26/24 03:03 04/26/24 03:01 04/26/24 04:00
CT Intake/Output/Weight
04/25/24 04/25/24 04/26/24
06:59 18:59 06:59
Intake Total 750 / 750
Output Total 100 / 210 70 / 1110 1040 / 1110
Balance -100 / -210 680 / -360 -1040 / -360
SaO2: 95 (RA)
Physical Exam
-
General: Awake, Oriented and AOx3
Cardiovascular: Regular rate & rhythm, No Murmurs and No Rub
Respiratory: Decreased Breath Sounds (on right)
Incision: Clean, Dry, Intact and Dressing Intact
Data Reviewed
-
Lab Results: Results Reviewed
Medications: Active Meds Reviewed
Chest X-Ray: Report Reviewed and Image Reviewed
ECG: Report Reviewed and Image Reviewed
--- NOTE | 2024-04-26 08:30 | PTCARENOTE ---
Patient received from manufacturing finance manager RN; AAOx3, responds to RN spontaneously and follows commands; VSS; NSR on monitor; +2 DP and radial pulses; Right lung coarse throughout; SpO2 93-97% on RA; Shallow respirations; CT x1 draining serosanguineous
drainage - connected to Heimlich valve and no crepitus noted; Patient urinating; Surgical incisions intact; PIVx2 #18 right hand and #20 LAC; See nursing documentation for further details.
[2024-04-26] MEDS: HEPARIN SC (08:31)
[2024-04-26] MEDS: NEURONTIN 100 MG PO ×3 (09:03→22:02)
[2024-04-26] MEDS: SENOKOT 8.6 MG PO ×2 (09:03→19:40)
[2024-04-26] MEDS: PROTONIX 40 MG PO (09:03)
[2024-04-26] MEDS: ZYRTEC 10 MG PO (09:03)
--- NOTE | 2024-04-26 12:30 | PTCARENOTE ---
Patient's SQ Heparin held this AM as per NEONATAL NURSE PRACTITIONER Nasrin Matamoros; Patient resting comfortably in bed awaiting procedure
--- NOTE | 2024-04-26 12:54 | CM ---
Chart reviewed. Patient is waiting for a PPM. Patient's and son at bedside. Patient is independent of ADLS, lives with his in a [address], 2 [address], 0 DME. Plan is for the patient to return home with CT Transitional RN. CM to follow
--- NOTE | 2024-04-26 13:01 | W.PN.CD ---
Today's Communication / Plan
-
Pacemaker today
Once pacer in [place] for beta redd
Later add Eliquis 5 bid
Impression / Plan
-
PAF
- [id number] is at least 2 (age1, HTN)
- When more recovered from lung surgery start Eliquis 5 BID
- Once pacer in add beta redd
- If AFib burden warrants and lung evaluation favorable (path pending) eventual ablation will be a good option
Sick sinus syndrome
- Agree with Dr. Cooper that a pacemaker is appropriate
- Reviewed option of watching more and waiting for more severe massiel/symptoms
S/p surgery for Right upper lobe nodule with increased growth and concerning features on PET/CT
- s/p Robotic assisted thoracic surgery (RATS): right upper lobectomy; Radical lymph node dissection; Pexy of RML to RLL to prevent torsion on 04/22/[address] Charles
- Path is pending
Acute blood loss/procedural anemia
- Hgb lowest 11.1
- No transfusion this admit
RBBB
HTN
CKD
Non-obstructive CAD
Hx BPH
Subjective:
Feels well today
Physical Exam
Vital Signs/Labs
Vital Signs
Temp Pulse Resp BP Pulse Ox
97.9 F 95 16 137/84 96
04/26/24 11:35 04/26/24 12:00 04/26/24 11:35 04/26/24 11:31 04/26/24 11:35
04/25/24 04/26/24 04/27/24
06:59 06:59 06:59
Actual Weight 71.5 kg
04/25/24 02:01
04/25/24 02:01
PT 13.8 Sec (11.4-14.6) 04/16/24 12:34
INR 1.03 04/16/24 12:34
APTT 28.7 Sec (23.4-35.0) 04/16/24 12:34
Magnesium 2.4 mg/dl (1.6-2.3) H 04/25/24 02:01
Physical Exam
Constitutional: No acute distress
EENT: Anicteric
Cardiovascular: Rhythm & rate is regular and Pedal edema is absent
Respiratory: Respiratory effort normal and Lungs clear to auscul.
Data Reviewed
-
Date of Service: April 26, 2024
[2024-04-26] MEDS: VANCOCIN 200 IV (14:02)
--- NOTE | 2024-04-26 14:12 | PTCARENOTE ---
Patient transported to casting house laborer for procedure; Report given to Anuel DEL CID; INGRID cloth wipes completed by RN; IV Vancomycin started and IV Azactam placed on chart for procedure
--- NOTE | 2024-04-26 15:47 | ITS.CL.PACE ---
Pantograph Machine Set Up Operator - Pacemaker Implant
Pacemaker Implant
Procedure Report:
Dual Chamber Pacemaker Placement:
Mr. Nielsen is a very pleasant 73 yrs old gentleman with severe symptomatic bradycardia with long pauses is recommended for PPM placement.�
Indications: Tachy Joshua syndrome
Date of the Procedure: 04/26/2024
Pre-Operative Diagnosis: Tachy Joshua syndrome
Post-Operative Diagnosis: Tachy Joshua syndrome
Procedure Performed: DUAL CHAMBER PACEMAKER IMPLANTATION
Performing Physician:
Linette Zambrano MD
Anesthesia:
See anesthesia records
Pre-operative antibiotics:
Aztreonam 2gm / Vancomycin 1 gm IV
Detailed Description of the Procedure:
The patient was identified using hospital identification and informed consent obtained for the procedure. The risks were explained including, but not limited to: Bleeding, infection, arrhythmia, stroke, vascular/cardiac/lung puncture, surgery,
pacemaker dependency/device malfunction. All questions were answered.
The patient was brought to the electrophysiology laboratory in stable condition in fasting state. Continuous electrocardiographic and hemodynamic monitoring was initiated. The initial rhythm was normal sinus rhythm.
A surgical pause and time out was performed immediately prior to the procedure with review of her medical history, recent labs, allergies and medications with site of procedure identified and consent noted in the chart. Antibiotics pre operatively
given. All team members concurred.
The procedure site was meticulously prepared with surgical scrub and allowed to dry with no pooling. Sterile draping was applied to cover the procedure site. The image intensifier was draped with sterile bag and positioned over the patient.
The left infraclavicular region was prepped and draped in the usual sterile fashion. Local anesthesia was administered subcutaneously using 1% lidocaine / Bupivacaine. The left cephalic vein cutdown was attempted. There was no cephalic noted. A
venogram was done and axillary vein patency and route identified. Following infiltration with local anesthetic, the axillary vein was accessed using the fluoroscopic guidance using the micro-puncture apparatus. The vascular sheaths were introduced
for lead access. The leads were advanced into the right ventricle and the right atrium.
The right ventricular lead was secured in position with an active fixation technique at the apical septal location.
The atrial lead was placed in the right atrial appendage with passive fixation tines.
There was excellent sensing, pacing, and impedance from the leads, with no diaphragmatic stimulation at 10 V output.�Bovie cautery, antibiotics, and fluoroscopy were used.
The sheaths were withdrawn, and the thresholds remained acceptable. The leads were secured in position at the venous entry site with 2-0 Ethibond. A pocket was fashioned contiguous to the incision. The electrode terminals were connected to the pulse
generator, which was placed into the pocket.
The device was anchored to underllying fascia using 2-0 Ethibond suture. The wound was irrigated thoroughly with antibiotic solution and closed in 3 layers using 2-0 Vloc then 4-0 Vloc sutures to the dermis.
Skin Steristrips were applied externally once the skin was dry.
Procedure End:
The procedure was tolerated well.
Estimated Blood loss:
5 cc
Specimens Removed:
No cultures and no specimens were obtained. No intraoperative pathology was identified.
Fluoro time:
4.1 min / 9.5mGy
Urine output:
None
Packs / Drains/ Tubes:
None
Instrument / Sponge Count Correct:
Yes
Complications of the Procedure:
None
Condition of Patient at Time of Transfer:
Hemodynamically stable with no neurological or vascular compromise.
Device information:�
Generator: SCOUPY; Model: W1DR01; Serial # [id number]�
Atrial Lead: SCOUPY; Model: 4574-53; Serial # [id number]
Measured data in the right atrium was sensing of 4.1 mV, impedance of 532 ohms and threshold of 0.5V at 0.4ms.
RV Lead: Medtronic; Model: 5076-58; Serial # [id number]
Measured data in the RV lead was sensing of 4.5mV, impedance of 855 ohms and threshold of 1.25 V at 0.4ms�
Joshua parameter settings were AAIR <=>DDDR 60-130 bpm. �
����������� Mode Switch: On
����������� Paced AV interval: 180ms
����������� Sensed AV interval: 150 ms.
����������� Rate Adaptive A-V Interval: Off
Output� parameters:
����������������������� Amplitude (V)������������� Pulse Width (ms)������� Sensitivity (mV)
����������� RA: ����� 3.5 ����������������� ����������� 0.4������������������ ����������� 0.3
����������� RV:������ 3.5������������������ ����������� 0.4������������������ ����������� 0.9
Summary:
Successful implantation of MRI compatible dual chamber Medtronic pacemaker
Results/Recommendations:
-Please follow up CXR�
1. Please provide patient with adequate pain control�
Instructions to be given to patient:�
- Please follow up with [facility] at [address] [place] [address] ([phone]) to get your wound checked within 14 days of your discharge.
- Do not wet incision site until after it is evaluated at cardiology clinic. No showers until then. Sponge baths are OK.�
- No swimming until cleared by the cardiology clinic.
- Do not lift left elbow above shoulder, particularly with sudden jerking movements, for 1 month�
- Do not lift anything weighing more than 10 pounds with the left arm for 1 month�
- If you notice any fevers, shortness of breath, lightheadedness, chest pain, or worsening swelling in the wound site, please contact the arrhythmia clinic, contact your commissions manager, or present to the hospital for evaluation.�
Linette Zambrano MD
Electrophysiology
[2024-04-26] MEDS: MIRALAX 17 GRAMS PO (16:25)
[2024-04-26] MEDS: METAMUCIL, KONSYL 1 PACKET PO (16:25)
[2024-04-26] MEDS: STERILE WATER FOR INJECTION 10 ML IV (16:26)
[2024-04-26] MEDS: LIDOCAINE 4% PATCH TOPICAL (16:26)
[2024-04-26] MEDS: AZACTAM 2000 MG IV (16:26)
--- NOTE | 2024-04-26 16:47 | PTCARENOTE ---
Patient received from trestle mainternance laborer at 1605; VSS; SR with RBBB on monitor; Friction rub present; Surgical site intact; CXR and EKG completed; Patient denies any pain at this time
[2024-04-26] MEDS: NORVASC 2.5 MG PO (17:15)
[2024-04-26] MEDS: LIPITOR 10 MG PO (17:15)
--- NOTE | 2024-04-26 17:43 | PTCARENOTE ---
[address] notified and aware regarding friction rub - no further orders at this time; VSS; LUE in sling immobilizer; Abdominal binder placed on patient by RN as per GUSTAVO Tellez
[2024-04-26] MEDS: ROXICODONE 2.5 MG PO (19:38)
[2024-04-26] MEDS: TOPROL XL 25 MG PO (19:41)
--- NOTE | 2024-04-26 20:00 | PTCARENOTE ---
Received pt from [facility]. Walking rounds completed. Pt is AAOx4. No neuro deficits noted. PPM placed today, dressing C/D/I. Pacemaker set to DDDR 60-130. No pacing spike noted on monitor. HR 103, B/P 148/91. Bi-lateral Upper and lower pulses +2 ;
Right lung coarse throughout; SpO2 93-97% on RA; Shallow respirations; CT x1 draining serosanguineous drainage - connected to Heimlich valve and no crepitus noted; NBS, abdomen soft, non-tender. Pt urinating clear, yellow urine in urinal. Pt c/o
pain 5-6/10, spoke with CTPA and medication provided (SEE MAR). Discussed plan of care with pt. Pt agrees with plan. Will continue to monitor pt needs.
[2024-04-26] MEDS: TORADOL 15 MG IV (20:44)
[2024-04-27] VITALS (12 sets, daily range): BP systolic 91–154; BP diastolic 47–94; BMI 25.3
--- NOTE | 2024-04-27 00:27 | PTCARENOTE ---
VSS. Pt in SR on monitor. HR 69, B/P 126/85. POX 95% RA. evening care provided. Pt resting in bed. Will continue to monitor pt needs.
--- NOTE | 2024-04-27 04:13 | PTCARENOTE ---
VSS. Sinus rhythm on monitor. HR 68, B/P 113/73. Morning labs obtained and sent. Ekg performed. Pt resting in bed. Will continue to monitor pt needs.
[2024-04-27 04:37] LABS: Hematocrit 33.5 % (39.0-52.0); Hemoglobin 11.6 g/dL (13.0-18.0); Mean Corp Hgb Conc. 34.6 g/dL (33.0-37.0); Mean Corpuscular Hgb 29.1 pg (27.0-31.0); Mean Platelet Volume 9.8 fL (7.4-10.4); Platelet Count 273 10^3/uL (130-400); Red Blood Cell Count 3.99 10^6/uL (4.70-6.10); Red Cell Dist. Width 11.9 % (11.5-14.5); White Blood Cell Count 6.3 10^3/uL (4.8-10.8)
[2024-04-27 05:27] LABS: Blood Urea Nitrogen 23 mg/dl (9-20); Calcium 9.1 mg/dl (8.4-10.2); Carbon Dioxide 21 mmol/L (22-30); Chloride 101 mmol/L (98-107); Estimated Creatinine Clearance 46 ml/min; Glucose 127 mg/dl (70-99); Magnesium 2.5 mg/dl (1.6-2.3); Potassium 5.6 mmol/L (3.5-5.1); Sodium 133 mmol/L (135-145); eGFR 58.01
[2024-04-27] MEDS: TYLENOL 1000 MG PO ×2 (06:06→14:14)
--- NOTE | 2024-04-27 06:36 | W.PN.CT ---
Today's Communication / Plan
-
Plan:
-No major issues overnight.
-Underwent successful dual chamber PPM placement yesterday 04/26/24. Site C/D/I with pressure dressing and arm sling applied
-Amiodarone and BB has been resumed. Will start Eliquis for postop A-fib
-Has small stable right apical ptx with minimal SQ emphysema (abdominal band applied), slightly improved F/U official cxr report
-Heimlich valve placed 04/25/23 without incident
-K 5.6, Na++ 133, will diurese and f/u bmp
-Home today
Assessment / Plan
-
- s/p Robotic assisted thoracic surgery (RATS) right upper lobectomy; Radical lymph node dissection; Pexy of RML to RLL to prevent torsion on 04/22/[address] Charles, pod #5
- no obvious intrathoracic metachronous lesions
- Right upper lobe nodule with increased growth and concerning features on PET/CT
- Melanoma stage II the right eyelid
- Paroxysmal Atrial fibrillation
- Irritable bowel syndrome
- Hypertension
- History of BPH
- CKD stage III
- Right bundle branch block
- Nonobstructive coronary artery disease
- History of tobacco abuse
- Acute postop blood loss anemia
- Acute postop atelectasis
- Acute postop a-fib with asystolic conversion pauses x5 (longest ~ 11 sec) S/p Dual chamber PPM placement, 04/26/24
Discussed patient care with: Cardiology, Nursing, Respiratory Therapy, Pharmacy and Care Team
Subjective
-
Date of Service: April 27, 2024
Pt c/o mild incisional pain, otherwise feel well
Objective Data
-
Lab Results
04/27/24 04:26
04/27/24 04:26
PT 13.8 Sec (11.4-14.6) 04/16/24 12:34
INR 1.03 04/16/24 12:34
APTT 28.7 Sec (23.4-35.0) 04/16/24 12:34
Vital Signs
Vital Signs
Temp Pulse Resp BP Pulse Ox
98.4 F 67 18 119/75 95
04/26/24 20:00 04/27/24 05:00 04/26/24 20:00 04/27/24 05:00 04/27/24 05:00
CT Intake/Output/Weight
04/26/24 04/26/24 04/27/24
06:59 18:59 06:59
Intake Total 920 / 920
Output Total 1040 / 1110 725 / 2485 1760 / 2485
Balance -1040 / -360 195 / -1565 -1760 / -1565
SaO2: 95 (RA)
Physical Exam
-
General: Awake, Oriented and AOx3
Cardiovascular: No Murmurs, No Rub and No Gallop
Respiratory: Decreased Breath Sounds (at bases, otherwise clear)
Sternum: Stable
Incision: Clean, Dry, Intact and Dressing Intact
Extremities: No Edema
Data Reviewed
-
Lab Results: Results Reviewed
Medications: Active Meds Reviewed
Chest X-Ray: Report Reviewed and Image Reviewed
ECG: Report Reviewed and Image Reviewed
--- NOTE | 2024-04-27 07:58 | W.DCSUMMARY ---
Discharge Summary
Discharge Data
Date of Admission: 04/22/24
Date of Discharge: 04/27/24
-
Pending Results: Yes (surgical pathology)
Hospital Course
Primary care physician: Austen Garcia
Outpatient loadmaster: none
Outpatient Machine Presser: Mikal
Inpatient consultants: Linette Zambrano (EP-CBC)
Procedures:
1. Robot assist right upper lobe lobectomy and lymph node dissection
2. Medtronic dual-chamber permanent pacer
Primary Diagnosis:
1. Right upper lobe pulmonary nodule with atypical cells
Secondary Diagnoses:
1. Melanoma stage II the right eyelid
2. Paroxysmal Atrial fibrillation with prolonged conversion pauses
3. Irritable bowel syndrome
4. Hypertension
5. History of BPH
6. CKD stage III
7. Chronic right bundle branch block
8. Nonobstructive coronary artery disease
9. History of tobacco abuse (quit 1984)
10. Acute postop combined surgical and dilutional blood loss anemia
11. Incidental left thyroid nodule on carotid ultrasound
HPI: 73-year-old male was electively admitted on 12/22/2023 for right upper lobe lobectomy for right upper lobe nodule and atypical cells on bronchoscopy biopsy
Hospital course: Patient underwent robot-assisted right upper lobe lobectomy, lymph node dissection, and pexy of RML to RLL to prevent torsion with Dr. Ronny Charles. Patient had continuous airleak postoperatively and the chest tube is To -20 cm
low wall suction. On postoperative day #1, patient was trialed on waterseal and was unable to tolerate. Please back on suction. Patient was diuresed with 20 mg of IV Lasix. On postoperative day #2, beta-redd dose was increased due to atrial
tachycardia while ambulating. Chest tube suction was reduced to -10 cm and then to water seal. Follow-up chest x-ray showed a pneumothorax without significant emphysema and a Heimlich valve was placed to the chest tube. On postoperative day #3
the patient converted to atrial fibrillation with rapid ventricular response. Patient had multiple 9 to 12-second conversion pauses. His amiodarone and Lopressor were discontinued. Patient underwent a Medtronic dual-chamber pacemaker insertion
with cardiology on 04/26/2024. Increased subcutaneous air was noted on follow-up x-ray and abdominal binder was placed. On 04/27, the right pleural chest tube was noted to be dislodged and a PCL was changed over guidewire. Follow-up chest x-ray
noted tube in good position. Patient will have follow-up x-ray on 05/03 , then see Dr. Charles for postop evaluation in office. Repeat BMP with creatinine 1.7, increased from 1 3 yesterday but stable from baseline preop level of 1.6. Scripts given
for BMP and chest x-ray for 05/03, chest prior to office visit with Dr. Charles.
Home medication changes:
New:
Eliquis and Metoprolol for atrial fibrillation
gabapentin, Oxycodone, Flexeril, acetaminophen for incision/nerve pain
Furosemide for weight gain
Discharge Plan
-
Patient Disposition: Home (Routine Discharge)
Discharge Diagnosis/Procedures: RATS RUL lobectomy & lymph node dissection
Pacemaker implant
Condition: Good
Diet: Low Sodium
Activity: No strenuous activity
Driving Restrictions: No driving for 1 week
Bathing Restrictions: OK to Shower
Blood Work: BMP on Wednesday 05/03 prior to appointment with 's office
Others Tests: have chest xray completed on Wednesday 05/03 just prior to your appt with Dr. Charles's office
Specialty Instructions: Weigh Daily- Call MD for wt gain/loss 3 lbs overnight/5 lbs in 1 week
Activity Restrictions/Additional Instructions:
ACTIVITY:
-No strenuous activity: no heavy lifting, pushing, pulling anything over 15 pounds
-continue to use stairs as tolerated
DRIVING RESTRICTIONS:
-No driving while on narcotics
WOUND CARE:
-Shower daily. Use soap & water.
-No lotions, creams or powders on incision area.
DIET:
-continue a low fat/low cholesterol diet.
Stand Alone Forms: DC Inst - Implanted Device
Referrals:
CT Transitional Care Nurse [Outside] - in one to two days
(The Cardiothoracic Transitional Care Nurse will call you to set up a visit in 1-2 days.
Surgical followup and pacemaker incision check appointment)
Josef Briggs MD [Active] - (As scheduled 05/17/2024)
Austen Garcia, [Family Provider] - in four to six weeks (Please make an appointment in four to six weeks. )
Cholo Long MD [Active] - 05/26/24 2:40 pm
Ronny Charles MD [Active] - 05/03/24 1:00 pm (have your chest xray completed in outpatient radiology prior to your appt)
Scarlett Hurley CRNP [Specified Professional Personl] - 05/07/24 1:00 pm
Prescriptions:
New
oxycodone 5 mg Tablet
5 mg PO Q4HPRN PRN (Reason: severe pain) Qty: 20 0RF
gabapentin 100 mg Capsule
100 mg PO TID Qty: 30 0RF
acetaminophen 325 mg Tablet
650 mg PO Q4HPRN PRN (Reason: mild pain,headache,temp >101F ) Qty: 0 0RF
cyclobenzaprine 10 mg Tablet
5 mg PO Q8HPRN PRN (Reason: muscle spasm) Qty: 20 0RF
metoprolol succinate 25 mg Tablet Extended Release 24 Hr
25 mg PO HS Qty: 30 1RF
Eliquis 5 mg Tablet
5 mg PO BID Qty: 60 0RF
furosemide [Lasix] 20 mg tablet
20 mg PO DAILY Qty: 5 0RF
Continued
atorvastatin 10 mg Tablet
10 mg PO QPM
amlodipine 2.5 mg Tablet
2.5 mg PO QPM
calcium carbonate [Tums] 200 mg calcium (500 mg) Tablet,Chewable
200 mg PO TIDPRN PRN (Reason: gerd)
ipratropium bromide 42 mcg (0.06 %) [place],Non-Aerosol
2 spray INTRANASAL BID
cetirizine [Zyrtec] 10 mg Tablet
10 mg PO DAILY
loperamide 2 mg Tablet
2 mg PO PRN PRN (Reason: Diarrhea)
omeprazole 40 mg Capsule,Delayed Release(Dr/Ec)
40 mg PO DAILY
fluticasone propionate [Flonase Allergy Relief] 50 mcg/actuation [place],Suspension
2 spray INTRANASAL QPM PRN (Reason: allergy Symptoms)
tadalafil 10 mg Tablet
10 mg PO HS
colestipol 1 gram Tablet
1 g PO QPM Qty: 0 0RF
colestipol 1 gram Tablet
2 g PO DAILY@1200 Qty: 0 0RF
psyllium Packet
1 packet PO DAILY Qty: 0 0RF
Discontinued
sodium bicarbonate
0.5 tsp PO PRN PRN (Reason: indigestion)
Care Plan Goals
Care Plan Goals:
Problem: Readiness for enhanced knowledge related to diagnosis and treatment plan
Goal: Understand your diagnosis and treatment plan needs, including medications if applicable.
Instructions: Know your diagnosis, underlying causes and treatment plan options, including medications if applicable. Consult with your health care team to learn about your diagnosis and treatment plan, including medications if applicable.
Discharge Date and Time
Print Language: CZECH
[2024-04-27] MEDS: XYLOCAINE 2% MDV 20 ML INJ (08:03)
--- NOTE | 2024-04-27 08:25 | PTCARENOTE ---
Assumed care of patient at 0700. Pt is awake, alert, and oriented. No complaints of pain. Pt remains SR with HR 80's-90's. BP 138/83 MAP 99. Pulse oximetry 95% on room air. Right lateral chest tube in place with Heimlich valve. CT PA to bedside
placing additional stitch to secure chest tube. Pt tolerating PO diet. Voiding without issue. Right lateral chest incisions approximated with surgical adhesive. Left chest wall with pressure dressing in place and left arm in sling. Pt currently
resting comfortably with call hughes within reach and at bedside.
[2024-04-27] MEDS: NEURONTIN 100 MG PO ×2 (08:29→15:57)
[2024-04-27] MEDS: LIDOCAINE 4% PATCH TOPICAL (08:29)
[2024-04-27] MEDS: ZYRTEC 10 MG PO (08:29)
[2024-04-27] MEDS: SENOKOT 8.6 MG PO (08:29)
[2024-04-27] MEDS: METAMUCIL, KONSYL 1 PACKET PO (08:29)
[2024-04-27] MEDS: MIRALAX 17 GRAMS PO (08:29)
[2024-04-27] MEDS: PROTONIX 40 MG PO (08:29)
[2024-04-27] MEDS: LASIX 40 MG IV (08:42)
--- NOTE | 2024-04-27 09:16 | CM ---
Addendum entered by Maritza Medina RN 04/27/24 12:46:
Patient is agreeable to cost.
Original Note:
Pricing on Eliquis through the patient's [facility] is $555 for the first month. Patient needs to meet his 590 deductible and then he is responsible for 25% of cost. I will place a free 30 day coupon in his red discharge folder.
--- NOTE | 2024-04-27 11:21 | W.PN.CD ---
Today's Communication / Plan
-
Doing well.
F/u in our office will be arranged
Continue new metoprolol at discharge
Start Eliquis tomorrow AM
OK for home when ready from CT surgery perspective
Impression / Plan
-
PAF
- [id number] is at least 2 (age1, HTN)
- When more recovered from lung surgery start Eliquis 5 BID => 04/28/2024, CT Surgery OK with that start date
- beta redd
- If AFib burden warrants and lung evaluation favorable (path pending) eventual ablation will be a good option
Sick sinus syndrome
- Agree with Dr. Cooper that a pacemaker was appropriate
- Pacer placed 04/28/2024
S/p surgery for Right upper lobe nodule with increased growth and concerning features on PET/CT
- s/p Robotic assisted thoracic surgery (RATS): right upper lobectomy; Radical lymph node dissection; Pexy of RML to RLL to prevent torsion on 04/22/[address] Charles
- Path is pending
Acute blood loss/procedural anemia
- Hgb lowest 11.1
- No transfusion this admit
RBBB
HTN
CKD
Non-obstructive CAD
Hx BPH
Subjective:
Feels well today. Pain well controlled.
Physical Exam
Vital Signs/Labs
Vital Signs
Temp Pulse Resp BP Pulse Ox
98.5 F 90 18 138/83 95
04/27/24 08:45 04/27/24 08:45 04/27/24 08:45 04/27/24 08:25 04/27/24 10:01
04/26/24 04/27/24 04/28/24
06:59 06:59 06:59
Actual Weight 71.5 kg 71.1 kg
04/27/24 04:26
PT 13.8 Sec (11.4-14.6) 04/16/24 12:34
INR 1.03 04/16/24 12:34
APTT 28.7 Sec (23.4-35.0) 04/16/24 12:34
Magnesium 2.5 mg/dl (1.6-2.3) H 04/27/24 04:26
Physical Exam
Constitutional: No acute distress
EENT: Anicteric
Cardiovascular: Rhythm & rate is regular and Pedal edema is absent
Respiratory: Respiratory effort normal and Lungs clear to auscul.
GI: Soft and Distention absent
Neuro/Psych: AO x 3
Data Reviewed
-
Date of Service: April 27, 2024
--- NOTE | 2024-04-27 12:46 | CM ---
Chart reviewed. Patient is independent of ADLS, lives with his in a [address], [address] [facility], 0 [address]. Plan is for the patient to return home with CT Transitional RN.
--- NOTE | 2024-04-27 12:50 | PTCARENOTE ---
Pt NPO for anticipated chest tube exchanged. Pt remains SR with HR 80's. BP 117/87 MAP 97. Pulse oximetry 95% on room air.
[2024-04-27] MEDS: DILAUDID 0.25 MG IV (13:10)
[2024-04-27 14:34] LABS: Blood Urea Nitrogen 27 mg/dl (9-20); Calcium 9.4 mg/dl (8.4-10.2); Carbon Dioxide 30 mmol/L (22-30); Chloride 95 mmol/L (98-107); Estimated Creatinine Clearance 35 ml/min; Glucose 98 mg/dl (70-99); Potassium 4.9 mmol/L (3.5-5.1); Sodium 135 mmol/L (135-145); eGFR 42.04
--- NOTE | 2024-04-27 14:34 | PTCARENOTE ---
CT Monik ADAN, to bedside. Right lateral chest tube exchanged. Chest tube remains to Heimlich valve. Pt with no issues. Portably chest x-ray obtained.
[2024-04-27] MEDS: XYLOCAINE 2% MDV 20 ML INFIL (14:35)
--- NOTE | 2024-04-27 14:48 | W.PN.UPDATE ---
Update Note
Progress Note Update
Cardiothoracic Surgery Procedure Note:
Pre Procedure Diagnosis: pneumothorax s/p right upper lobectomy
Post Procedure Diagnosis: pneumothorax s/p right upper lobectomy
Procedure:
Exchange of Right chest tube over a wire using Anthony Pneumothorax Pigtail kit
Supervising Physician: Dr. Ronny Charles
Combination Welder/Assistants: Monik Barrera PA-C
Anesthesia: 0.25mg IV dilaudid pre procedure, 15ml 2% lidocaine without epi
Specimen: none
Indication: dislodgement of OR chest tube
Description of Procedure:
Informed consent was obtained with the patient at the bedside.� Patient was prepped and draped in sterile fashion, proper timeout was performed.�15 cc of 2% lidocaine was infiltrated around the current chest tube site. Pt was able to confirm no
sensation to painful stimuli in that region. Old chest tube was cut short and securing sutures removed. Guidewire was advanced through the chest tube and old chest tube was removed over the wire. A 14 K[address]wanda Anthony pigtail catheter chest tube was
advanced over the guidewire. Catheter was hooked up to heimlich valve and secured with zip ties. Tube was secured with 2-0 silk suture and 2-0 ethibond to seal around the skin. 2-0 Ethibond U stitch was placed and secured to the tube. Site was
dressed with a large biopatch and vaseline gauze, 4x4 and tegaderms. Pt tolerated procedure well, portable chest xray to be obtained to confirm positioning.
Estimated blood loss: none
Complications: none
--- NOTE | 2024-04-27 15:45 | PTCARENOTE ---
pt received from previous RN, agree w/ previous assessment. VS completed. R lateral CT in place. pt showered.
--- NOTE | 2024-04-27 17:32 | PTCARENOTE ---
pt discharged home w/ . IV and tele dc'd. CT dressing changed by OLCO Ruggiero. discharge instructions reviewed w/ patient, home meds reviewed. scripts given. pt left w/ all belongings via wheelchair w/ staff escort.
== END 2024-04-27 17:30 | disposition home or self-care (01) | DRG 164 ==
LOC: CVICU 06:14
PROVIDERS: Internal Medicine Cardiovascular Disease; Nurse Practitioner; Physician Assistant Medical; ADMITTING PHYSICIAN Thoracic Surgery (Cardiothoracic Vascular Surgery); CONSULT PHYSICIAN Internal Medicine Cardiovascular Disease; FAMILY PHYSICIAN Family Medicine; OTHER PHYSICIAN Internal Medicine Critical Care Medicine
PROC: 8E0W4CZ Robotic Assisted Procedure of Trunk Region, Percutaneous Endoscopic Approach (ICD-10-PCS; 2024-04-22)
PROC: 07T74ZZ Resection of Thorax Lymphatic, Percutaneous Endoscopic Approach (ICD-10-PCS; 2024-04-22)
PROC: 0BTC4ZZ Resection of Right Upper Lung Lobe, Percutaneous Endoscopic Approach (ICD-10-PCS; 2024-04-22)
PROC: 02H63JZ Insertion of Pacemaker Lead into Right Atrium, Percutaneous Approach (ICD-10-PCS; 2024-04-26)
PROC: 02HK3JZ Insertion of Pacemaker Lead into Right Ventricle, Percutaneous Approach (ICD-10-PCS; 2024-04-26)
PROC: 0JH606Z Insertion of Pacemaker, Dual Chamber into Chest Subcutaneous Tissue and Fascia, Open Approach (ICD-10-PCS; 2024-04-26)
PROC: 0W9930Z Drainage of Right Pleural Cavity with Drainage Device, Percutaneous Approach (ICD-10-PCS; 2024-04-27)
PROC: 0WP930Z Removal of Drainage Device from Right Pleural Cavity, Percutaneous Approach (ICD-10-PCS; 2024-04-27)
DX: C34.11 Malignant neoplasm of upper lobe, right bronchus or lung (principal); D62 Acute posthemorrhagic anemia; J98.11 Atelectasis; J95.811 Postprocedural pneumothorax; J84.9 Interstitial pulmonary disease, unspecified; I12.9 Hypertensive chronic kidney disease with stage 1 through stage 4 chronic kidney disease, or unspecified chronic kidney disease; N18.30 Chronic kidney disease, stage 3 unspecified; I25.10 Atherosclerotic heart disease of native coronary artery without angina pectoris; K58.0 Irritable bowel syndrome with diarrhea; N40.0 Benign prostatic hyperplasia without lower urinary tract symptoms; I45.10 Unspecified right bundle-branch block; J43.2 Centrilobular emphysema; I49.5 Sick sinus syndrome; I48.0 Paroxysmal atrial fibrillation; E78.00 Pure hypercholesterolemia, unspecified; J45.991 Cough variant asthma; G47.33 Obstructive sleep apnea (adult) (pediatric); E04.1 Nontoxic single thyroid nodule; Y83.6 Removal of other organ (partial) (total) as the cause of abnormal reaction of the patient, or of later complication, without mention of misadventure at the time of the procedure; Z79.899 Other long term (current) drug therapy; Z82.49 Family history of ischemic heart disease and other diseases of the circulatory system; Z85.820 Personal history of malignant melanoma of skin; Z87.891 Personal history of nicotine dependence
CPT/HCPCS: 88305; 88307; 88309; 88311; 88332; 32505; 33208; 36415; 71045; 80048; 80053; 81003; 81459; 82248; 83036; 83735; 85025; 85027; 85610; 85730; 86850; 86900; 86901; 86920; 87070; 88331; 88341; 88342; 93005; 93880; C1785; C1892; C1898; Q9967

== ENCOUNTER → 2024-05-03 12:59 | Outpatient (REF) | payer MEDICARE, SELFPAY ==
[2024-05-03 13:29] VITALS: BP 132/81; BP_SYST 85
--- NOTE | 2024-05-03 16:06 | W.PN.UPDATE ---
Update Note
Progress Note Update
Pt seen in CT surgery office this morning with CXR prior to visit, pt noted to have increased R sided PTX (with heimlich valve/CT in place). Per discussions with Dr. Charles, decision made to pursue new apical R chest tube with interventional radiology
today. After IR procedure completed, I met with patient in IR recovery, old 'posterior' Right chest tube was discontinued without incident by me. Green ethibond suture tied down & site dressed with vaseline gauze, 4x4 and tegaderm. Attention was
then taken to the R 'anterior' chest tube that was placed to pleurevac [id number] by IR. Portable chest xray confirmed significant improvement in R sided PTX. New heimlich valve & schwartz leg bag were secured to the new chest tube and atrium discarded.
5cc of 2% lidocaine without epi was injected around the new chest tube site. Additional silk suture was placed at CT insertion site for further security. Pt tolerated all of the above very well. He has oxycodone remaining from recent hospitalization
for his RU lobectomy and has been instructed to continue taking that per Rx as needed for pain. Old 'posterior' chest tube site should remain dressed x48hrs, and then OK to leave open to air and shower as usual. New 'anterior' chest tube was
re-dressed with 4x4s and tegaderms--pt instructed OK to shower with tegaderms intact. Left chest PPM site also evaluated and healing well, no redness or drainage appreciated--healing well. OK to leave open to air and was as usual. Pt instructed to
call Dr. Charles's office with any questions or concerns, he will follow up as scheduled on 05/07 with CXR prior to appt.
== END ==
LOC: RADI 12:59
PROVIDERS: ATTENDING PHYSICIAN Nurse Practitioner Acute Care
DX: J95.811 Postprocedural pneumothorax (principal); Y83.8 Other surgical procedures as the cause of abnormal reaction of the patient, or of later complication, without mention of misadventure at the time of the procedure
CPT/HCPCS: 32557; 36415; 71045; 71046; 80048; C1729; C1769

== ENCOUNTER → 2024-05-07 11:53 | Outpatient (REF) | payer MEDICARE, SELFPAY | LOC: RAD 11:53 | PROVIDERS: ATTENDING PHYSICIAN Thoracic Surgery (Cardiothoracic Vascular Surgery); FAMILY PHYSICIAN Family Medicine | DX: Z90.2 Acquired absence of lung [part of] (principal); Z87.09 Personal history of other diseases of the respiratory system | CPT/HCPCS: 71046 ==

== ENCOUNTER → 2024-05-12 11:50 | Outpatient (REF) | payer MEDICARE, SELFPAY | LOC: RAD 11:50 | PROVIDERS: ATTENDING PHYSICIAN Nurse Practitioner Acute Care; FAMILY PHYSICIAN Family Medicine | DX: Z90.2 Acquired absence of lung [part of] (principal); J93.83 Other pneumothorax | CPT/HCPCS: 71046 ==

== ENCOUNTER → 2024-08-09 13:50 | Outpatient (REF) | payer MEDICARE, OTHER, SELFPAY | LOC: HWRAD 13:50 | PROVIDERS: ATTENDING PHYSICIAN Internal Medicine Critical Care Medicine; FAMILY PHYSICIAN Nurse Practitioner Adult Health | DX: C34.91 Malignant neoplasm of unspecified part of right bronchus or lung (principal) | CPT/HCPCS: 71250 ==

== ENCOUNTER → 2025-01-13 10:47 | Outpatient (REF) | payer MEDICARE, OTHER, SELFPAY | LOC: HWRAD 10:47 | PROVIDERS: ATTENDING PHYSICIAN Internal Medicine Critical Care Medicine; FAMILY PHYSICIAN Nurse Practitioner Adult Health | DX: C34.91 Malignant neoplasm of unspecified part of right bronchus or lung (principal); R91.1 Solitary pulmonary nodule | CPT/HCPCS: 71250 ==